=== PATIENT | male | born 2005 | race Caucasian/White ===

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

== ENCOUNTER 2023-01-22 08:04 | Emergency (ER) | payer MEDICAID, SELFPAY ==
[2023-01-22 08:05] VITALS: BP 146/95; PULSE 75; RESP 16; TEMP 36.2; O2SAT 98; BMI 28.3
--- NOTE | 2023-01-22 08:20 | EX.ED.UPPERE ---
HPI History of Present Illness Chief Complaint: Laceration Narrative Narrative: 17-year-old male who denies significant past medical history, [id number], presents with puncture wound/laceration to his palm of his left hand that he sustained last evening around 8 PM, approximately 12 hours ago. He states he was using scissors and kept them open while cutting a piece of paper. He ended up stabbing the palm of his left hand with one of the blades of the scissor. He states that he had the bleeding controlled initially, then it started rebleeding last night, and had the bleeding controlled until this morning. He states he coughed and there was a gush of blood that came out of his wound of his left hand. His tetanus immunization is up-to-date. He denies other injuries. He presents for wound evaluation of his left hand. [facility] Home Medications NK 03/23/19 [History Last Taken Unknown] Allergy/AdvReac Type Severity Reaction Status Date / Time No Known Allergies Allergy Verified 03/23/19 15:37 Social History Smoking Status: Never smoker ROS ROS ED ROS Narrative Constitutional: No fever, no chills. HEENT: No sore throat. No neck pain. No loss of vision. No rhinorrhea. Cardiovascular: No chest pain. No palpitations. No pedal edema. Respiratory: No cough, no shortness of breath. Abdominal: No abdominal pain. No nausea. No vomiting. Genitourinary: No dysuria. No hematuria. Musculoskeletal: No myalgias. Left hand pain from puncture wound. Neurologic: No headaches. No dizziness. No lightheadedness. Skin: No rash. No change in color. Approximately 1 cm laceration/puncture wound to palm of left hand at base of fourth digit. Psychiatric: No depression. No anxiety. EXAM Physical Exam Narrative Exam Narrative: Afebrile. Vital signs noted. HEENT: Normocephalic. Atraumatic. PERRL, EOMI. Neck soft and supple. No point tenderness or step off. Cardiovascular: Regular rate and rhythm. No murmurs, rubs, or gallops appreciated. Respiratory: No tachypnea. Lungs clear to auscultation bilaterally. Gastrointestinal: Abdomen soft, nontender, with normoactive bowel sounds. No rebound or guarding. Neurological: Awake. Alert. Nonfocal, nonlateralizing. Skin: No rash. Normal color. No pallor. 1 cm laceration at base of fourth digit and palm of left hand. No apparent tendon injury. Flexion and extension of fourth finger intact. Good capillary refill. Uninjured wrist and above. Palpable radial pulse. No active bleeding. Musculoskeletal: No pedal edema. Full range of motion extremities. Const Vital Signs: 01/22/23 08:05 Temperature 97.2 F L Temperature Source Temporal Pulse Rate 75 Respiratory Rate 16 Blood Pressure 146/95 H Blood Pressure Mean 112 Pulse Ox 98 Oxygen Delivery Method Room Air MDM MDM MDM Narrative Medical decision making narrative: I reviewed the patient's prior records. He had a prior ED visit which I think is noncontributory to his current chief complaint. As this wound is greater than 6 hours old, I do not feel that suture closure is indicated and he was informed of the risk of higher incidence of infection with wound closure. I do not feel that x-rays or laboratory work is indicated. He may have had expression of a hematoma that had collected in his palm when he had coughed. His wound will be lightly cleansed as he stated he had cleansed it last evening. Gelfoam will be applied along with dry sterile dressing. He will take [id number] analgesics as needed. I do not feel he requires observation. He will allow the wound to heal by secondary intent and follow-up with a primary care provider. As it is the holiday weekend he will have a wound check in the next 3 to 5 days. Return instructions to the emergency department were reviewed. Disposition is discharged home in stable condition. Discharge Plan Triage Chief Complaint: Laceration ED Provider: Duane Mendoza Dx/Rx/DC Orders Clinical Impression: Encounter for post-traumatic wound check, Puncture wound of hand Instructions: ED Laceration, Old: Not Sutured, ED Stab Wound Prescriptions: No Action NK Stand Alone Forms: ED Work / School Excuse Primary Care Provider: Estefany Salgado NP Referrals: Guicho Alberts MD [Med Staff - Active Staff] - 3-5 Days if not improving Estefany Salgado NP, RESEARCH AND DEVELOPMENT SPECIALIST-C [Primary Care Provider] - 3-5 Days if not improving Activity Restrictions/Additional Instructions: Follow-up with the a primary care provider for a wound check in the next 3 to 5 days. Disposition Disposition: Home, Self Care Discharge Date/Time: 01/22/23 08:45
[2023-01-22] MEDS: Gelatin Sponge Absorbable 50cm (1) 1 EACH TOPICAL (08:28)
== END 2023-01-22 08:45 | disposition home or self-care (01) ==
LOC: ED 08:24
PROVIDERS: Emergency Provider Emergency Medicine; PCP Nurse Practitioner Family; Visit Provider Emergency Medicine
DX: S61.412A Laceration without foreign body of left hand, initial encounter (principal); W27.2XXA Contact with scissors, initial encounter
CPT/HCPCS: 99282